=== PATIENT | female | born 1955 | race Caucasian/White ===

== ENCOUNTER → 2016-10-04 | Outpatient (CLI) | payer BC ==
[2016-10-04 17:51] LABS: HEMATOCRIT 41.9 % (36.0-47.0); HEMOGLOBIN 13.7 g/dL (12.0-15.5); HGB HCT DIFFERENCE -0.8; MEAN CORPUSCULAR HEMOGLOBIN 32.3 pg (27.0-33.4); MEAN CORPUSCULAR HGB CONC 32.8 g/dL (32.0-36.0); MEAN CORPUSCULAR VOLUME 98 fl (80-97); RED BLOOD COUNT 4.25 10^6/uL (3.72-5.28); RED CELL DISTRIBUTION WIDTH 17.5 % (11.5-14.0); WHITE BLOOD COUNT 7.4 10^3/uL (4.0-10.5)
[2016-10-04 18:11] LABS: ANION GAP 15 (5-19); BLOOD UREA NITROGEN 10 mg/dL (7-20); CALCIUM 9.7 mg/dL (8.4-10.2); CARBON DIOXIDE 28 mmol/L (22-30); CHLORIDE 100 mmol/L (98-107); CREATININE RESULT 0.57 mg/dL (0.52-1.25); GLUCOSE 88 mg/dL (75-110); MAGNESIUM 1.5 mg/dL (1.6-2.3); POTASSIUM 3.8 mmol/L (3.6-5.0); SODIUM 142.5 mmol/L (137-145)
== END ==
LOC: OD 15:41
PROVIDERS: ATTEND Internal Medicine Cardiovascular Disease
DX: R00.2 Palpitations (principal)
CPT/HCPCS: 36415; 80048; 83735; 84443; 85027

== ENCOUNTER → 2016-10-24 | Outpatient (CLI) | payer BC ==
[2016-10-24 12:37] LABS: ALANINE AMINOTRANSFERASE 27 U/L (9-52); ALBUMIN 4.1 g/dL (3.5-5.0); ALKALINE PHOSPHATASE 141 U/L (38-126); ASPARTATE AMINO TRANSFERASE 23 U/L (14-36); BILIRUBIN,TOTAL 0.5 mg/dL (0.2-1.3); CHOLESTEROL 283.31 mg/dL (0-200); Direct HDL 96 mg/dL (>40); TOTAL PROTEIN 7.4 g/dL (6.3-8.2); TRIGLYCERIDES 225 mg/dL (<150)
[2016-10-24 12:48] LABS: DIRECT LDL 141 mg/dL (<100)
== END ==
LOC: OD 11:16
PROVIDERS: ATTEND Internal Medicine Cardiovascular Disease
DX: R00.2 Palpitations (principal); Z79.899 Other long term (current) drug therapy
CPT/HCPCS: 36415; 80061; 80076

== ENCOUNTER 2017-02-17 16:28 | Emergency (ER) | payer SELFPAY ==
[2017-02-17 16:39] VITALS: BP 132/85
--- NOTE | 2017-02-17 17:04 | ER Document Report ---
HPI - HPI Patient complains to provider of: finger injury Onset: Just prior to arrival Onset/Duration: Sudden Quality of pain: Achy Pain Level: 0 Context: States that someone brushed passed her in a place of business causing her to fall. Patient states she reached and grabbed for the door frame cutting her right thumb in 2 places. Patient states that she has some mild tenderness to the thumb. Patient reports that her tetanus immunization is currently up-to- date. Associated Symptoms: Other - thumb lac Exacerbated by: Denies Relieved by: Denies Similar symptoms previously: No Recently seen / treated by doctor: No - ROS ROS below otherwise negative: Yes Systems Reviewed and Negative: Yes All other systems reviewed and negative - NEURO Neurology: DENIES: Weakness - GASTROINTESTINAL Gastrointestinal: DENIES: Nausea - REPRODUCTIVE Reproductive: DENIES: : - MUSCULOSKELETAL Musculoskeletal: REPORTS: Extremity pain - right thumb - DERM Skin Color: Normal Skin Problems: Laceration Past Medical History - General Information source: Patient - Social History Smoking Status: Never Smoker Frequency of alcohol use: Occasional Drug Abuse: None Occupation: none Family History: None Patient has suicidal ideation: No Patient has homicidal ideation: No - Past Medical History Cardiac Medical History: Reports: Hx Hypertension Denies: Hx Coronary Artery Disease, Hx Heart Attack Pulmonary Medical History: Denies: Hx Asthma, Hx Bronchitis, Hx COPD, Hx Pneumonia Neurological Medical History: Denies: Hx Cerebrovascular Accident, Hx Seizures Renal/ Medical History: Reports: Hx Ectopic - x2 (both in 1979, 9 months between). Denies: Hx Peritoneal Dialysis GI Medical History: Denies: Hx Hepatitis, Hx Hiatal Hernia, Hx Ulcer Musculoskeltal Medical History: Reports Hx Arthritis - osteo and degenerative joint disease Infectious Medical History: Denies: Hx Hepatitis Past Surgical History: Reports: Hx Breast Surgery - breast augmentation 1986, Hx Hysterectomy, Hx Orthopedic Surgery - left knee meniscus. Denies: Hx Mastectomy, Hx Open Heart Surgery, Hx Pacemaker - Immunizations Hx Diphtheria, Pertussis, Tetanus Vaccination: No Vertical Provider Document - CONSTITUTIONAL Agree With Documented VS: Yes Exam Limitations: No Limitations General Appearance: WD/WN, No Apparent Distress - INFECTION CONTROL TRAVEL OUTSIDE OF THE [place] IN LAST 30 DAYS: No - HEENT HEENT: Atraumatic, Normocephalic - NECK Neck: Normal Inspection - RESPIRATORY Respiratory: No Respiratory Distress O2 Sat by Pulse Oximetry: 96 - CARDIOVASCULAR Pulses: Normal: Radial - MUSCULOSKELETAL/EXTREMETIES Musculoskeletal/Extremeties: MAEW, FROM, Tender - base of right thumb tender at cmc joint, no deformity, No Edema - NEURO Level of Consciousness: Awake, Alert, Appropriate Motor/Sensory: No Motor Deficit Notes: no tendon deficit - DERM Integumentary: Warm, Dry, Laceration - avulsion laceration x 2 to radial aspect of right thumb, no active bleeding Course - Re-evaluation Re-evalutation: 02/17/17 Pt says she has to leave to take care of her elderly mother. Patient declines waiting for radiology report or to have her wound cleaned and dressed. Patient given verbal discharge instructions. Patient verbalized understanding and agrees with plan of care. - Vital Signs Vital signs: Temp Pulse Resp BP Pulse Ox 98.6 F 79 17 132/85 H 96 02/17/17 16:33 02/17/17 16:33 02/17/17 16:33 02/17/17 16:33 02/17/17 16:33 - Diagnostic Test Radiology reviewed: Pending, Image reviewed Discharge - Discharge Clinical Impression: Thumb laceration Qualifiers: Encounter type: initial encounter Laterality: right Qualified Code(s): S61.011A - Laceration without foreign body of right thumb without damage to nail , initial encounter Condition: Stable Disposition: HOME, SELF-CARE Instructions: Non-Sutured Laceration ([facility]), Dressing Instructions for Open Wounds ([facility]) Additional Instructions: return as needed for any new or worsening symptoms follow up with your primary doctor orthopedic doctor for recheck Referrals: ROMAN BORREGO DO [NO LOCAL MD] - Follow up as needed
--- NOTE | 2017-02-17 17:47 | RADIOLOGY REPORT (SQ) ---
EXAM DESCRIPTION: FINGER RIGHT COMPLETED DATE/TIME: 02/17/2017 5:35 pm REASON FOR STUDY: fall, thumb injury COMPARISON: None. NUMBER OF VIEWS: Three views. TECHNIQUE: AP, lateral, and oblique images acquired of the right thumb. LIMITATIONS: None. FINDINGS: MINERALIZATION: Normal. BONES: No acute fracture or dislocation. No worrisome bone lesions. SOFT TISSUES: Mild soft tissue swelling. No foreign body. OTHER: No other significant finding. IMPRESSION: No fracture or radiopaque foreign body. COMMENT: SITE OF TRAUMA/COMPLAINT MARKED/STAMP COMPLETED: Yes. TECHNICAL DOCUMENTATION: JOB ID: [id number] [employer]- All Rights Reserved
== END 2017-02-17 17:58 | disposition home or self-care (01) ==
LOC: ER 16:28
DX: S61.011A Laceration without foreign body of right thumb without damage to nail, initial encounter (principal); W45.8XXA Other foreign body or object entering through skin, initial encounter
CPT/HCPCS: 99283